=== PATIENT | male | born 1960 | race Caucasian/White ===

== ENCOUNTER 2016-04-11 | Emergency (ER) | payer OTHER | END 2016-04-11 05:45 | disposition left against medical advice (07) | DX: Z53.21 Procedure and treatment not carried out due to patient leaving prior to being seen by health care provider (principal) ==

== ENCOUNTER 2016-04-16 22:23 | Emergency (ER) | payer OTHER | END 2016-04-17 03:45 | disposition home or self-care (01) | LOC: ER1 22:23 | DX: M54.41 Lumbago with sciatica, right side (principal); J43.9 Emphysema, unspecified; K59.00 Constipation, unspecified; R16.1 Splenomegaly, not elsewhere classified | CPT/HCPCS: 72131; 81001; 87086; 96372; 99284; J1100 ==

== ENCOUNTER 2016-05-11 01:36 | Emergency (ER) | payer OTHER | END 2016-05-11 03:17 | disposition home or self-care (01) | LOC: ER1 01:36 | DX: J32.9 Chronic sinusitis, unspecified (principal); F17.210 Nicotine dependence, cigarettes, uncomplicated | CPT/HCPCS: 99283 ==

== ENCOUNTER 2016-05-25 10:33 | Emergency (ER) | payer OTHER | END 2016-05-25 13:40 | disposition home or self-care (01) | LOC: ER1 10:33 | DX: S06.0X0A Concussion without loss of consciousness, initial encounter (principal); S02.2XXA Fracture of nasal bones, initial encounter for closed fracture; S02.40DA Maxillary fracture, left side, initial encounter for closed fracture; S02.32XA Fracture of orbital floor, left side, initial encounter for closed fracture; J43.9 Emphysema, unspecified; F17.200 Nicotine dependence, unspecified, uncomplicated; Z88.1 Allergy status to other antibiotic agents; V47.5XXA Car driver injured in collision with fixed or stationary object in traffic accident, initial encounter; Y93.89 Activity, other specified; Y92.410 Unspecified street and highway as the place of occurrence of the external cause | CPT/HCPCS: 36415; 70450; 70486; 72125; 99284 ==